=== PATIENT | female | born 1940 | race Caucasian/White ===

== ENCOUNTER → 2017-05-06 | Outpatient (CLI) | payer BC ==
--- NOTE | 2017-05-06 15:32 | MAMMOGRAPHY REPORT ---
BILATERAL DIGITAL SCREENING MAMMOGRAM WITH CAD: 05/06/2017 CLINICAL HISTORY: Routine screening. TECHNIQUE: Current study was also evaluated with a Computer Aided Detection (CAD) system. Bilateral CC and MLO and right X CCL views were obtained. COMPARISON: Comparison is made to exams dated: 05/04/2016 mammogram, 05/01/2015 mammogram, 4 mammogram, 04/21/2013 mammogram, 04/20/2012 mammogram, and 04/15/2011 mammogram - [facility] [place]. BREAST COMPOSITION: There are scattered areas of fibroglandular density in both breasts. FINDINGS: No suspicious masses, calcifications, or areas of architectural distortion are noted in ei ther breast. There has been no significant interval change compared to prior exams. A biopsy marker clip is again noted within the left superior breast. IMPRESSION: ACR BI-RADS CATEGORY 2: BENIGN There is no mammographic evidence of malignancy. A 1 year screening mammogram is recommended. The pa tient will receive written notification of the results. Approximately 10% of breast cancers are not detected with mammography. A negative mammographic report should not delay biopsy if a clinically suggestive mass is present. Sonia Turner M.D. ah/:05/06/2017 15:01:38 Manager People: Telma CRAIN(R)(M), [facility] letter sent: Normal 1/2 BI-RADS Code: ACR BI-RADS Category 2: Benign
== END | disposition home or self-care (01) ==
LOC: C.MAMM 13:18
PROVIDERS: ATTEND Family Medicine
DX: Z12.31 Encounter for screening mammogram for malignant neoplasm of breast (principal)

== ENCOUNTER → 2017-07-06 | Outpatient (CLI) | payer BC ==
--- NOTE | 2017-07-06 13:23 | DIAGNOSTIC IMAGING REPORT ---
(CHEST) THORAX WITHOUT CT DOSE: 285.02 mGycm HISTORY: Abnormal chest x-ray. PULMONARY NODULE, RIGHT MID LUNG TECHNIQUE: Multiaxial CT images of the chest were performed without contrast. A dose lowering technique was utilized adhering to the principles of ALARA. COMPARISON: Chest 04/23/2017. FINDINGS: There is a focal nodular and branching opacity within the right upper lobe anteriorly measuring 1.9 x 1.2 cm. This corresponds to the chest x-ray abnormality. Mild biapical scarring is noted. Calcified granuloma seen within the superior segment of the left lower lobe. A few linear scarlike densities within the right middle lobe. The central airways are patent. No pleural effusions. No pneumothorax. No suspicious lytic or blastic osseous lesions. A 2.4 cm left thyroid nodule. The heart is mildly enlarged. The visualized adrenal glands are unremarkable. A few calcified granuloma seen within the spleen. A 7 mm hypodensity within the right hepatic dome. This is too small to characterize but favors a cyst. No mediastinal or hilar lymphadenopathy. Normal caliber thoracic aorta. IMPRESSION: 1. A 1.9 x 1.2 cm focal nodular and branching opacity within the right upper lobe anteriorly which corresponds to the chest x-ray abnormality. This may represent scarring. However, recommend follow-up chest CT in 3 months to ensure stability and to exclude the possibility of a pulmonary lesion. 2. A 2.4 cm left thyroid nodule. Electronically signed by: Ibrahima Alicea M.D. 07/06/2017 1:22 PM Dictated Date/Time: 07/06/2017 1:15 PM
== END | disposition home or self-care (01) ==
LOC: C.CTS 12:04
PROVIDERS: ATTEND Family Medicine
DX: R91.1 Solitary pulmonary nodule (principal); E04.1 Nontoxic single thyroid nodule

== ENCOUNTER → 2018-01-27 | Outpatient (CLI) | payer BC ==
--- NOTE | 2018-01-27 12:39 | DIAGNOSTIC IMAGING REPORT ---
R SHOULDER MIN 2 VIEWS ROUTINE CLINICAL HISTORY: 77 years-old Female presenting with PAIN IN R SHOULDER. TECHNIQUE: Internal rotation, external rotation, Grashey views of the right shoulder were obtained. COMPARISON: Chest x-ray from 04/23/2017. FINDINGS: Glenohumeral and acromioclavicular joints congruent. Minimal bony spurring of the undersurface of the acromion suggested. No effacement of the acromiohumeral interval. No subluxation or deformity of the humeral head. No acute fracture or malalignment. No advanced degenerative change. No radiographic soft tissue abnormality. IMPRESSION: 1. No acute osseous injury. 2. Minimal bony spurring along the undersurface of the acromion suggested. Electronically signed by: Rufino Campbell M.D. 01/27/2018 12:38 PM Dictated Date/Time: 01/27/2018 12:36 PM
== END | disposition home or self-care (01) ==
LOC: C.RAD1850 12:23
PROVIDERS: ATTEND Student in an Organized Health Care Education/Training Program
DX: M25.511 Pain in right shoulder (principal)